=== PATIENT | male | born 1955 | race African-American/Black ===

== ENCOUNTER 2018-01-09 19:41 | Inpatient (IN) | payer OTHER ==
[~2018-01-09] VITALS: Ht 177.8 cm; Wt 98.1 kg
--- OUTSIDE RECORDS SUMMARY | 2018-01-09 19:45 | XMS REPORT | Clinical Summary ---
Author Author [facility] Organization [facility] Address Unknown Phone Unavailable Care Team Providers Care Mailroom Courier Name Role Phone Jaya Nelson MD PCP Allergies Active Allergy Reactions Severity Noted Date Comments Codeine 05/27/2017 Current Medications Prescription Sig. Disp. Refills Start End Date Status Date amoxicillin (AMOXIL) 875 TK 1 T PO BID 0 04/22/ Active MG tablet 17 ciprofloxacin (CIPRO) 500 TK 1 T PO BID 0 05/23/20 Active MG tablet 17 ergocalciferol (VITAMIN TK 1 C PO 1 TIME A WK 2 05/05/20 Active D2) 50,000 unit capsule 17 losartan (COZAAR) 50 MG TK 1 T PO QD 1 05/05/20 Active tablet 17 simvastatin (ZOCOR) 20 MG TK 1 T PO QPM 0 05/14/20 Active tablet 17 Active Problems Problem Noted Date Acute prostatitis 05/27/2017 Encounters Date Type Specialty Care Team Description 05/27/2017 Office Visit Urology Rolf Trujillo MD Acute prostatitis (Primary Dx) after 01/08/2017 Social History Tobacco Use Types Packs/Day Years Used Date Never Smoker Alcohol Use Drinks/Week oz/Week Comments No Sex Assigned at Date Recorded Not on file Last Filed Vital Signs Vital Sign Reading Time Taken Blood Pressure 141/80 05/27/2017 3:35 PM CDT Pulse 63 05/27/2017 3:35 PM CDT Temperature 36.6 C (97.8 F) 05/27/2017 3:35 PM CDT Respiratory Rate - - Oxygen Saturation - - Inhaled Oxygen - - Concentration Weight 100 kg (221 lb) 05/27/2017 3:35 PM CDT Height 180.3 cm (5' 11") 05/27/2017 3:35 PM CDT Body Mass Index 30.82 05/27/2017 3:35 PM CDT Plan of Treatment Health Maintenance Due Date Last Done Comments COLONOSCOPY 2004 ZOSTER VACCINE 2014 INFLUENZA VACCINE 06/29/2017 Results * Microscopic Examination (05/28/2017 7:43 AM) Component Value Ref Range WBC, UA 0-5 0 - 5 /hpf RBC, UA 0-2 0 - 2 /hpf Epithelial cells (non 0-10 0 - 10 /hpf renal) Mucus, UA Present Not Estab. Bacteria, UA None seen None seen/Few Specimen Performing Laboratory [facility] Narrative Performed at:[address] [place], [place] [id number] Research Engineer: Joao Emerson MD, Phone:[phone] * Urinalysis, automated with microscopy (05/28/2017 7:43 AM) Component Value Ref Range Specific gravity, urine 1.028 1.005 - 1.030 pH, urine 6.5 5.0 - 7.5 Color, UA Yellow Yellow Appearance Clear Clear WBC esterase, urine Negative Negative Protein, UA 1+ (A) Negative/Trace Glucose, urine Negative Negative Ketones, UA Negative Negative Occult blood, urine Negative Negative Bilirubin, UA Negative Negative Urobilinogen, UA 0.2 0.2 - 1.0 mg/dL Nitrite, UA Negative Negative Microscopic examination See below:Comment: Microscopic was indicated and was performed. Specimen Performing Laboratory [facility] Narrative Performed at:[address] [place], [place] [id number] Research Engineer: Joao Emerson MD, Phone:[phone] * Urine culture (05/28/2017 7:43 AM) Component Value Ref Range Urine culture No growth Specimen Performing Laboratory [facility] Narrative Performed at:[address] [place], [place] [id number] Research Engineer: Joao Emerson MD, Phone:[phone] * Prostate specific antigen (05/28/2017 7:43 AM) Component Value Ref Range PSA 2.0 0.0 - 4.0 ng/mL Comment: [place] ECLIA methodology. According to the [employer], Serum PSA should decrease and remain at undetectable levels after radical prostatectomy. The AUA defines biochemical recurrence as an initial PSA value 0.2 ng/mL or greater followed by a subsequent confirmatory PSA value 0.2 ng/mL or greater. Values obtained with different assay methods or kits cannot be used interchangeably. Results cannot be interpreted as absolute evidence of the presence or absence of malignant disease. Specimen Performing Laboratory Blood [facility] Narrative Performed at: - [facility] [id number] Research Engineer: Joao Emerson MD, Phone:[phone] after 01/08/2017 Insurance Payer Benefit Subscriber ID Type Phone Address Plan / Group [facility] xxxxxxxxx HMO/PPO THCARE CHOICE/CHO ICE +
[2018-01-09 20:20] VITALS: BP 157/98
[2018-01-09] MEDS ORDERED: ONDANSETRON HCL INJ 2 MG/ML VIAL IV PRN (20:30)
[2018-01-09] MEDS: SODIUM CHLORIDE 0.9% 1000ML 1,000 ML IV SCH (20:30)
[2018-01-09] MEDS ORDERED: ACETAMINOPHEN 325 MG TAB PO PRN (22:45)
[2018-01-09] MEDS ORDERED: LOSARTAN POTASS25 MG PO (22:52)
[2018-01-09 22:54] VITALS: BP 157/98
[2018-01-10 00:15] VITALS: BP 162/90
[2018-01-10] MEDS: SODIUM CHLORIDE 0.9% 1000ML 1,000 ML IV SCH ×3 (03:10→16:20)
[2018-01-10 04:20] VITALS: BP 156/95
[2018-01-10 07:09] LABS: BASOPHILS % 0.9 % (0.0-1.0); EOSINOPHILS # (AUTO) 0.2 (0.0-0.4); EOSINOPHILS % 7.4 % (0.0-6.0); HEMATOCRIT 33.8 % (38.2-49.6); HEMOGLOBIN 12.1 g/dL (14.0-18.0); LYMPHOCYTES # (AUTO) 1.1 (1.0-3.2); LYMPHOCYTES % 51.6 % (18.0-39.1); MEAN CORPUSCULAR HEMOGLOBIN 27.8 pg (28-32); MEAN CORPUSCULAR HGB CONC 35.8 g/dL (31-35); MEAN CORPUSCULAR VOLUME 77.7 fL (81-99); MONOCYTES # (AUTO) 0.3 (0.2-0.8); MONOCYTES % 12.6 % (4.4-11.3); NEUTROPHILS # (AUTO) 0.6 (2.1-6.9); NEUTROPHILS % 27.5 % (38.7-80.0); PLATELET COUNT 188 x10e3/uL (140-360); RED BLOOD COUNT 4.35 x10e6/uL (4.3-5.7); RED CELL DISTRIBUTION WIDTH 12.2 % (11.7-14.4)
[2018-01-10 07:32] LABS: ANION GAP 10.6 mmol/L (8-16); BLOOD UREA NITROGEN 9 mg/dL (7-26); BUN/CREATININE RATIO 11 (6-25); CALCIUM 8.1 mg/dL (8.4-10.2); CARBON DIOXIDE 21 mmol/L (22-29); CHLORIDE 90 mmol/L (98-107); CHOL/HDL RATIO 2.5 (3.9-4.7); CHOLESTEROL 123 MD/DL (0-199); CREATINE KINASE 2490 IU/L (30-200); CREATININE, SERUM 0.83 mg/dL (0.72-1.25); EST GLOMERULAR FILTRATION RATE > 60 ML/MIN (60-); GLUCOSE 82 mg/dL (74-118); HDL CHOLESTEROL 49 MG/DL (40-60); LDL CHOLESTEROL 64 MG/DL (60-130); MAGNESIUM 1.4 MG/DL (1.3-2.1); PHOSPHORUS 3.4 MG/DL (2.3-4.7); POTASSIUM 4.6 mmol/L (3.5-5.1); TRIGLYCERIDES 50 MG/DL (0-149)
[2018-01-10 07:40] LABS: SODIUM 117 mmol/L (136-145)
[2018-01-10 07:45] LABS: THYROID STIMULATING HORMONE 1.719 uIU/mL (0.350-4.940)
[2018-01-10 08:01] VITALS: BP 155/80
--- NOTE | 2018-01-10 08:13 | History and Physical ---
PRIMARY CARE PHYSICIAN: Dr. Nelson CHIEF COMPLAINT: Muscle cramps of the legs. HISTORY OF PRESENT ILLNESS: This is a 62-year-old man with a history of hypertension, who was participating in increased physical activity with moving their furniture with a move from current home location, and who has been on simvastatin for the past 2 years at 20 mg daily. Had leg pain and muscle fatigue, and cramps in his lower extremities prompting a visit to the urgent care facility in [place]. There he was found to have acute rhabdomyolysis, and now transitioned here for care. Patient denies any chest pain or shortness of breath. PAST MEDICAL HISTORY: Hypertension. PAST SURGICAL HISTORY: Urologic. ALLERGIES: PER ELECTRONIC MEDICAL RECORDS. FAMILY HISTORY/SOCIAL HISTORY: Patient is . He has 4 children. No alcohol, illicits or cigarettes. He works at a desk job. MEDICATIONS: Per electronic medical records. REVIEW OF SYSTEMS: Denies any dizziness or chest pain. PHYSICAL EXAMINATION VITAL SIGNS: Reviewed. GENERAL: A tired-appearing man resting in bed. HEENT: Anicteric. Pupils respond to light. No oral lesions. CARDIOVASCULAR: Normal S1 and S2. LUNGS: Moderate breath sounds. ABDOMEN: Soft, nontender and nondistended. EXTREMITIES: No edema or calf tenderness. NEUROLOGICAL: Alert and oriented times 3. Moving all extremities. SKIN: Dry. PSYCHIATRIC: Normal affect. LABS: Reviewed. MEDICATIONS: Reviewed. ASSESSMENT AND PLAN: A 62-year-old man with: 1. Acute rhabdomyolysis: Creatinine kinase over 2000. Will continue intravenous fluid bolus in addition to fluids. Will check a TSH. Will avoid statin medication. 2. Hyponatremia: Will reassess his sodium level during the day. 3. Hypertension: Will start calcium channel adrianna. 4. Metabolic acidosis: Will give him bicarb and reassess his labs in the afternoon. 5. Obesity: Body mass index is 31. Will screen for diabetes and obtain a lipid panel. 6. Leukopenia: White blood cells are 2.15. Reassess. 7. Microcytic anemia which is mild: Will follow. 8. Prophylaxis: Will use sequential compression devices. 9. Disposition: Monitor closely. Reassess. Obtain labs. Recheck labs. Recheck sodium level. Job#: [id number] IN
[2018-01-10] MEDS: SENNOSIDES 8.6 MG TAB PO SCH (08:15)
[2018-01-10] MEDS: NIFEDIPINE CR 30 MG TAB PO SCH ×2 (08:15→21:48)
[2018-01-10] MEDS ORDERED: SODIUM CHLORIDE 0.9% 1000ML 1,000 ML IV ONE (08:30)
[2018-01-10] MEDS: SODIUM BICARBONATE 650 MG TAB PO SCH ×2 (09:00→17:15)
[2018-01-10 11:29] LABS: EOSINOPHILS % (MANUAL) 10 % (0-7); LYMPHOCYTES % (MANUAL) 42 % (19-48); MONOCYTES % (MANUAL) 9 % (3.4-9.0); NEUTROPHILS % (MANUAL) 35 % (40-74)
[2018-01-10 11:30] LABS: PLATELET ESTIMATE ADEQUATE; PLATELET MORPHOLOGY COMMENT NORMAL; RBC MORPHOLOGY COMMENT NORMAL
[2018-01-10 12:11] VITALS: BP 158/83
[2018-01-10 12:29] LABS: ANION GAP 10.2 mmol/L (8-16); BLOOD UREA NITROGEN 9 mg/dL (7-26); BUN/CREATININE RATIO 11 (6-25); CALCIUM 8.2 mg/dL (8.4-10.2); CARBON DIOXIDE 24 mmol/L (22-29); CHLORIDE 91 mmol/L (98-107); CREATININE, SERUM 0.85 mg/dL (0.72-1.25); EST GLOMERULAR FILTRATION RATE > 60 ML/MIN (60-); GLUCOSE 87 mg/dL (74-118); POTASSIUM 4.2 mmol/L (3.5-5.1); SODIUM 121 mmol/L (136-145)
[2018-01-10 16:00] VITALS: BP 138/83
[2018-01-10 20:00] VITALS: BP 134/86
[2018-01-11] VITALS: BP 157/87
[2018-01-11 04:00] VITALS: BP 145/78
[2018-01-11 08:03] VITALS: BP 124/71
[2018-01-11] MEDS: NIFEDIPINE CR 30 MG TAB PO SCH ×2 (09:15→21:25)
[2018-01-11] MEDS: SENNOSIDES 8.6 MG TAB PO SCH (09:15)
[2018-01-11] MEDS: SODIUM CHLORIDE 0.9% 1000ML 1,000 ML IV SCH ×3 (09:15→21:54)
[2018-01-11] MEDS: SODIUM BICARBONATE 650 MG TAB PO SCH ×2 (09:15→17:00)
[2018-01-11 11:51] VITALS: BP 148/78
[2018-01-11 16:00] VITALS: BP 142/81
[2018-01-11 20:00] VITALS: BP 153/86
[2018-01-12] VITALS (7 sets, daily range): BP systolic 150–176; BP diastolic 83–98
[2018-01-12] MEDS: SODIUM CHLORIDE 0.9% 1000ML 1,000 ML IV SCH ×2 (05:11)
[2018-01-12] MEDS: SENNOSIDES 8.6 MG TAB PO SCH (09:08)
[2018-01-12] MEDS: NIFEDIPINE CR 30 MG TAB PO SCH ×2 (09:08→20:40)
[2018-01-12] MEDS: SODIUM BICARBONATE 650 MG TAB PO SCH (09:08)
[2018-01-12] MEDS ORDERED: SODIUM CHLORIDE 0.9% 1000ML 1,000 ML IV SCH (10:00)
[2018-01-12 10:01] LABS: BASOPHILS % 0.8 % (0.0-1.0); EOSINOPHILS # (AUTO) 0.2 (0.0-0.4); EOSINOPHILS % 8.7 % (0.0-6.0); HEMATOCRIT 34.9 % (38.2-49.6); HEMOGLOBIN 12.4 g/dL (14.0-18.0); LYMPHOCYTES # (AUTO) 1.3 (1.0-3.2); LYMPHOCYTES % 52.4 % (18.0-39.1); MEAN CORPUSCULAR HEMOGLOBIN 27.8 pg (28-32); MEAN CORPUSCULAR HGB CONC 35.5 g/dL (31-35); MEAN CORPUSCULAR VOLUME 78.3 fL (81-99); MONOCYTES # (AUTO) 0.3 (0.2-0.8); MONOCYTES % 12.2 % (4.4-11.3); NEUTROPHILS # (AUTO) 0.7 (2.1-6.9); NEUTROPHILS % 25.5 % (38.7-80.0); PLATELET COUNT 208 x10e3/uL (140-360); RED BLOOD COUNT 4.46 x10e6/uL (4.3-5.7); RED CELL DISTRIBUTION WIDTH 12.4 % (11.7-14.4)
[2018-01-12 10:09] LABS: BLOOD UREA NITROGEN 8 mg/dL (7-26); BUN/CREATININE RATIO 11 (6-25); CALCIUM 8.1 mg/dL (8.4-10.2); CARBON DIOXIDE 18 mmol/L (22-29); CHLORIDE 90 mmol/L (98-107); CREATININE, SERUM 0.75 mg/dL (0.72-1.25); EST GLOMERULAR FILTRATION RATE > 60 ML/MIN (60-); GLUCOSE 79 mg/dL (74-118)
--- NOTE | 2018-01-12 10:17 | Progress Note ---
DATE: January 11, 2018 TIME: 7:40 a.m. OVERNIGHT: No events. REVIEW OF SYSTEMS: Denies any dizziness. VITAL SIGNS: Reviewed. PHYSICAL EXAMINATION GENERAL: A tired-appearing man resting in bed. HEENT: Anicteric. CARDIOVASCULAR: Normal S1 and S2. No murmur. ABDOMEN: Soft, nontender. EXTREMITIES: No edema. SKIN: Dry. PSYCHIATRIC: Normal affect. LABS: Reviewed. MEDICATIONS: Reviewed. ASSESSMENT AND PLAN: A 62-year-old man. 1. Acute rhabdomyolysis. 2. Hyponatremia. 3. Hypertension. 4. Metabolic acidosis. 5. Obesity. 6. Leukopenia. 7. Microcytic anemia. PLAN 1. Continue IV fluids. 2. Follow up CPK. 3. Follow I's and O's. 4. Blood pressure control. 5. Obtain labs. 6. Monitor. Job#: [id number]
[2018-01-12 10:19] LABS: SODIUM 117 mmol/L (136-145)
[2018-01-12 11:25] LABS: EOSINOPHILS % (MANUAL) 4 % (0-7); LYMPHOCYTES % (MANUAL) 50 % (19-48); MONOCYTES % (MANUAL) 16 % (3.4-9.0); NEUTROPHILS % (MANUAL) 30 % (40-74)
[2018-01-12 11:26] LABS: ANISOCYTOSIS SLIG; ELLIPTOCYTE, RBC SLIGHT; HYPOCHROMASIA SLIG; PLATELET ESTIMATE ADEQUATE; PLATELET MORPHOLOGY COMMENT FEW LARGE; POIKILOCYTOSIS SLIGHT; RBC MORPHOLOGY COMMENT NORMAL
[2018-01-12 12:10] LABS: FREE THYROXINE INDEX 1.8048 (1.4-3.8); THYROID STIMULATING HORMONE 2.019 uIU/mL (0.350-4.940)
--- NOTE | 2018-01-12 14:39 | Consultation ---
DATE OF CONSULTATION: January 12, 2018 REASON FOR CONSULTATION: Hyponatremia. HPI: Mr. Leonardo is a pleasant 62-year-old man with a history of hypertension, who was admitted to [facility] on January 09, 2018, which is 2 days ago with complaints of muscle cramps in his lower extremities. He had been moving some furniture when the left pain started. He was found to be in acute rhabdo and was admitted for further treatment. Upon presentation, his creatine kinase level was 2490 and has since then trended down to 1482 today. Also, on presentation, his sodium level was 117 mEq per liter. He was aggressively started on IV normal saline at 200 mL per hour. Two days ago, his sodium trended up to 121 and then this morning again has trended down to 117 mEq per liter. According to the patient, he does not have a prior history of hyponatremia and has never been seen by a wire frame lampshade maker for this either. REVIEW OF SYSTEMS: Denies fevers, chills, nausea, vomiting, diarrhea, chest pain, palpitations, abdominal pain, pain or burning with urination, numbness or tingling in upper or lower extremities, no changes in mood, no changes in appetite, and no changes in thirst. PAST MEDICAL HISTORY: Hypertension. PAST SURGICAL HISTORY: None. ALLERGIES: SULFA AND CODEINE. FAMILY HISTORY: No renal disease. SOCIAL HISTORY: No alcohol, tobacco, or illicit drug use. PHYSICAL EXAMINATION GENERAL: He is lying comfortably in bed, in no acute distress. VITAL SIGNS: Temperature 97.4, heart rate 62, respiratory rate 18, blood pressure 102/83, and O2 sat is 100%. HEENT: NC, AT, EOMI. NECK: Supple. JVP not appreciated. LUNGS: Clear to auscultation bilaterally. No wheezing or rales. HEART: Regular rate and rhythm, S1 and S2 normal. ABDOMEN: Soft, nontender, and distended. Positive bowel sounds. EXTREMITIES: No edema. Intact pulses. SKIN: No rashes or lesions. MUSCULOSKELETAL: Normal to inspection. NEURO: Cranial nerves II through XII are grossly intact. No focal deficits. LABS: Reviewed on electronic medical record significant for a sodium of 117, chloride of 90, and bicarb was 18. CK level 1482. IMAGING: Reviewed on electronic medical record. ASSESSMENT: Mr. Leonardo is a 62-year-old man admitted with rhabdomyolysis and found to be in hyponatremia. PLAN: Hyponatremia at this point. We will just treat hyponatremia as chronic. So, the goal would be to collect to 6 to 8 mEq in 24 hours. Goals for correction until tomorrow a.m. is 123 mEq per liter. On exam, looks euvolemic and I suspect this is SIADH; however, he has no overt reasons to be in SIADH and has not had a history of SIADH previously as well, nor has a history of pathology in his brain or lungs that would explain SIADH. We will check her urine sodium, urine os, urine potassium, uric acid, serum osmolality, TSH, and cortisol level. Since sodium level has trended down despite adequate fluid resuscitation including 3 liters of normal saline from admission along with another 100 mL per hour started as well. We will stop the IV fluids. We will check urine studies. In the interim, we will place him on fluid restriction, and if sodium trends down any further or if he starts to have symptoms, will require 3% normal saline. Thank you, Dr. Magaña, for allowing me to participate in the care of Mr. Leonardo. I will continue to follow closely. Job#: [id number] VAS
[2018-01-12] MEDS ORDERED: SODIUM CHLORIDE 1 GM TAB PO SCH (15:00)
--- NOTE | 2018-01-12 15:24 | Diagnostic Imaging Report ---
PROCEDURE: Frontal and lateral views of the chest. COMPARISON: None. INDICATIONS: HYPONATREMIA FINDINGS: Lines/tubes: None. Lungs: The lungs are well inflated and clear. There is no evidence of pneumonia or pulmonary edema. Pleura: There is no pleural effusion or pneumothorax. Heart and mediastinum: Tortuous aorta. Otherwise, the heart and the mediastinum are normal. Bones: No acute bony abnormality. IMPRESSION: No acute cardiopulmonary disease. Dictated by: Lyle Yap M.D. on 01/12/2018 at 15:23 Electronically approved by: Lyle Yap M.D. on 01/12/2018 at 15:23
[2018-01-12] MEDS ORDERED: TOLVAPTAN 15 MG TAB PO ONE (17:15)
[2018-01-12] MEDS ORDERED: TOLVAPTAN 30 MG TAB PO NR (17:45)
[2018-01-13] VITALS (7 sets, daily range): BP systolic 93–140; BP diastolic 65–85
[2018-01-13 07:10] LABS: BASOPHILS % 1.1 % (0.0-1.0); EOSINOPHILS # (AUTO) 0.2 (0.0-0.4); EOSINOPHILS % 7.9 % (0.0-6.0); HEMATOCRIT 35.7 % (38.2-49.6); HEMOGLOBIN 12.7 g/dL (14.0-18.0); LYMPHOCYTES # (AUTO) 1.2 (1.0-3.2); LYMPHOCYTES % 42.9 % (18.0-39.1); MEAN CORPUSCULAR HEMOGLOBIN 27.9 pg (28-32); MEAN CORPUSCULAR HGB CONC 35.6 g/dL (31-35); MEAN CORPUSCULAR VOLUME 78.3 fL (81-99); MONOCYTES # (AUTO) 0.4 (0.2-0.8); MONOCYTES % 13.9 % (4.4-11.3); NEUTROPHILS % 33.8 % (38.7-80.0); PLATELET COUNT 209 x10e3/uL (140-360); RED BLOOD COUNT 4.56 x10e6/uL (4.3-5.7); RED CELL DISTRIBUTION WIDTH 12.7 % (11.7-14.4)
[2018-01-13 07:34] LABS: ANION GAP 12.6 mmol/L (8-16); BLOOD UREA NITROGEN 15 mg/dL (7-26); BUN/CREATININE RATIO 12 (6-25); CALCIUM 8.7 mg/dL (8.4-10.2); CARBON DIOXIDE 21 mmol/L (22-29); CHLORIDE 91 mmol/L (98-107); CREATINE KINASE 1274 IU/L (30-200); CREATININE, SERUM 1.27 mg/dL (0.72-1.25); EST GLOMERULAR FILTRATION RATE > 60 ML/MIN (60-); GLUCOSE 81 mg/dL (74-118); POTASSIUM 4.6 mmol/L (3.5-5.1); SODIUM 120 mmol/L (136-145)
[2018-01-13] MEDS: NIFEDIPINE CR 30 MG TAB PO SCH ×2 (09:00→20:38)
[2018-01-13] MEDS: SENNOSIDES 8.6 MG TAB PO SCH (09:00)
--- NOTE | 2018-01-13 09:35 | Progress Note ---
DATE: January 13, 2018 TIME: 8:55 a.m. OVERNIGHT: Patient had worsening sodium. Fluids were stopped and nephrology consulted. Started on tolvaptan and salt tablets. REVIEW OF SYSTEMS: Denies any chest pain or shortness of breath. VITAL SIGNS: Reviewed. PHYSICAL EXAMINATION GENERAL: A tired-appearing man resting in bed. HEENT: Anicteric. CARDIOVASCULAR: Normal S1 and S2. LUNGS: Moderate breath sounds. ABDOMEN: Soft, nontender, nondistended. EXTREMITIES: No edema. SKIN: Dry. PSYCHIATRIC: Normal affect. LABS: Reviewed. MEDICATIONS: Reviewed. ASSESSMENT AND PLAN: A 62-year-old man. 1. Acute rhabdomyolysis. 2. Syndrome of inappropriate antidiuretic hormone secretion. 3. Hypertension. 4. Metabolic acidosis. 5. Obesity. 6. Leukopenia. 7. Microcytic anemia. 8. Acute kidney injury. PLAN 1. Salt tablets. 2. Tolvaptan. 3. Follow sodium level. Sodium level today is 120, which is improving. 4. Monitor renal function. 5. CPK is down to 1274. 6. Continue close monitoring of sodium. Salt tablets and tolvaptan were given yesterday and are off. Will continue to follow closely with nephrology. Job#: [id number]
[2018-01-13 12:19] LABS: ANISOCYTOSIS SLIGHT; EOSINOPHILS % (MANUAL) 3 % (0-7); LYMPHOCYTES % (MANUAL) 45 % (19-48); MONOCYTES % (MANUAL) 13 % (3.4-9.0); NEUTROPHILS % (MANUAL) 38 % (40-74); POIKILOCYTOSIS SLIGHT
[2018-01-13 12:20] LABS: HOWELL-JOLLY BODIES FEW; HYPOCHROMASIA SLIGHT; PLATELET ESTIMATE ADEQUATE; PLATELET MORPHOLOGY COMMENT NORMAL; RBC MORPHOLOGY COMMENT NORMAL
--- NOTE | 2018-01-13 13:32 | Progress Note ---
DATE: January 13, 2018 REASON FOR CONSULTATION: Hyponatremia. SUBJECTIVE: Patient states he is feeling much better. Denies changes in mood, imbalance, or changes in thirst. OBJECTIVE GENERAL: Sitting comfortably in chair. VITAL SIGNS: Temperature 96.6, heart rate 70, respiratory rate 18, blood pressure 110/75, and O2 sat is 100% on room air. LUNGS: Clear to auscultation bilaterally. No wheezing or rales. HEART: Regular rate and rhythm. S1 and S2 normal. ABDOMEN: Soft, nontender, and nondistended. EXTREMITIES: No edema. Intact pulses. SKIN: No rashes or lesions. LABS: Reviewed on electronic medical record significant for a hemoglobin of 12.7. Reviewed on electronic medical record significant for a sodium of 120, chloride of 91, bicarb of 21, creatinine of 1.2, and creatine kinase of 1274 from 1489. IMAGING: Reviewed on electronic medical record. No acute cardiopulmonary disease. ASSESSMENT 1. Nonoliguric acute kidney injury, question whether he has developed acute kidney injury in the setting of tolvaptan therapy. The only thing different from the medications he was getting to today was a tolvaptan. Did increase his urination. However prior to giving the tolvaptan, urine studies were performed and his urine sodium was 100. We would suspect that if he was intravascularly depleted, urine sodium would be a lot lower. Primary reason for giving tolvaptan was that I would not have to put him on a fluid restriction in the setting of elevated creatine kinase level. Tolvaptan has not significantly changed his sodium level as I would have expected either. We will repeat a urinalysis as well as a urine sodium and urine osmolality this morning. 2. Hyponatremia as above. We will continue sodium checks and requested results of urine studies to be sent to me and we will determine whether to do more tolvaptan or switch to normal saline. We will continue oral sodium bicarbonate. 3. Metabolic acidosis: We will continue oral sodium bicarbonate. 4. Hypertension: Continue nifedipine. Job#: [id number] PAT
[2018-01-13 14:43] LABS: BILIRUBIN,URINE NEGATIVE (NEGATIVE); CLARITY,URINE CLEAR (CLEAR); COLOR,URINE YELLOW (YELLOW); KETONES,URINE NEGATIVE (NEGATIVE); LEUKOCYTE ESTERASE ,URINE NEGATIVE (NEGATIVE); NITRITE,URINE NEGATIVE (NEGATIVE); PROTEIN,URINE DIPSTICK NEGATIVE (NEGATIVE); URINE UROBILINOGEN 0.2 mg/dL (0.2 - 1)
--- NOTE | 2018-01-13 15:21 | Diagnostic Imaging Report ---
Examination: CT head without contrast Clinical Indication: Fatigue. Technique: Transaxial noncontrast images from the skull base through the vertex were obtained. Sagittal and coronal reformatted images were done. Comparison: None. Findings: Scalp: No abnormalities. Bones: Intact. No fractures. No blastic or lytic lesions. Brain sulci: Appropriate for patient's age. Ventricles: Normal in size and configuration. No hydrocephalus. . Extra-axial space: No abnormalities. Parenchyma: There are patchy areas of low-attenuation within subcortical and periventricular white matter, nonspecific, but could represent microvascular ischemic disease. Chronic lacunar infarcts are demonstrated in the bilateral centrum semiovale. No masses, hemorrhage, or acute or chronic cortical based vascular insults. Suprasellar region: There is an intrasellar and suprasellar hyperdense lesion measuring 2.9 x 2.1 x 2.5 cm (superoinferior x anteroposterior x transverse dimensions). There is likely compression of the optic chiasm. Craniocervical junction: The foramen magnum is patent. No Chiari one malformation. Impression: 1. No acute intracranial abnormality. 2. Findings described likely represent a pituitary adenoma which likely compresses the optic chiasm. 3. Mild chronic microvascular ischemic change. 4. Chronic lacunar infarcts in the bilateral centrum semiovale. Signed by: Dr. Lisa Curry M.D. on 01/13/2018 3:18 PM
[2018-01-13] MEDS ORDERED: SODIUM CHLORIDE 0.9% 1000ML 1,000 ML IV ONE (16:30)
[2018-01-13] MEDS: SODIUM BICARBONATE 650 MG TAB PO SCH (20:37)
[2018-01-13 21:08] LABS: ANION GAP 12.4 mmol/L (8-16); BLOOD UREA NITROGEN 18 mg/dL (7-26); BUN/CREATININE RATIO 17 (6-25); CALCIUM 8.7 mg/dL (8.4-10.2); CARBON DIOXIDE 18 mmol/L (22-29); CHLORIDE 97 mmol/L (98-107); CREATININE, SERUM 1.07 mg/dL (0.72-1.25); EST GLOMERULAR FILTRATION RATE > 60 ML/MIN (60-); GLUCOSE 92 mg/dL (74-118); POTASSIUM 4.4 mmol/L (3.5-5.1); SODIUM 123 mmol/L (136-145)
[2018-01-13] MEDS ORDERED: SODIUM BICARBONATE 8.4% INJ 50 ML SYR IV STA ×2 (22:17)
[2018-01-14] VITALS: BP 140/78
[2018-01-14] MEDS: SODIUM BICARBONATE 8.4% SYRING 75 ML in SODIUM CHLORIDE 0.45% 1,000 ML IV SCH ×2 (00:17→13:47)
[2018-01-14 04:58] VITALS: BP 113/66
[2018-01-14 05:41] LABS: ANION GAP 12.8 mmol/L (8-16); BLOOD UREA NITROGEN 26 mg/dL (7-26); BUN/CREATININE RATIO 20 (6-25); CARBON DIOXIDE 26 mmol/L (22-29); CHLORIDE 99 mmol/L (98-107); CREATININE, SERUM 1.33 mg/dL (0.72-1.25); EST GLOMERULAR FILTRATION RATE > 60 ML/MIN (60-); GLUCOSE 89 mg/dL (74-118); POTASSIUM 4.8 mmol/L (3.5-5.1); SODIUM 133 mmol/L (136-145)
[2018-01-14 08:00] VITALS: BP 118/75
--- NOTE | 2018-01-14 08:58 | Progress Note ---
DATE: January 14, 2018 TIME: 8:24 a.m. OVERNIGHT: CT scan of the brain showed a pituitary adenoma. REVIEW OF SYSTEMS: Denies any dizziness. PHYSICAL EXAMINATION VITAL SIGNS: Reviewed. GENERAL: A tired-appearing man resting in bed. HEENT: Anicteric. CARDIOVASCULAR: Normal S1 and S2. LUNGS: Moderate breath sounds. ABDOMEN: Soft. EXTREMITIES: No edema. SKIN: Dry. PSYCHIATRIC: Normal affect. NEUROLOGICAL: Alert and oriented times 3. Moving all extremities. LABS: Reviewed. MEDICATIONS: Reviewed. ASSESSMENT: A 62-year-old man with: 1. Acute rhabdomyolysis. 2. Pituitary adenoma. 3. Syndrome of inappropriate antidiuretic hormone. 4. Hypertension. 5. Metabolic acidosis. 6. Obesity. 7. Leukopenia. 8. Microcytic anemia. 9. Acute kidney injury. PLAN 1. He received salt tablets and tolvaptan. 2. Follow up sodium level this morning. 3. Follow up CPK level this morning. 4. He has pituitary adenoma. Will consult Dr. White of endocrinology. 5. Leukopenia has persisted. His sodium level today is 133, which is much improved. 6. Will check his creatinine kinase level this morning. Job#: [id number] ANTONIA
[2018-01-14] MEDS: SENNOSIDES 8.6 MG TAB PO SCH (09:02)
[2018-01-14] MEDS: NIFEDIPINE CR 30 MG TAB PO SCH ×2 (09:02→22:06)
[2018-01-14] MEDS: SODIUM BICARBONATE 650 MG TAB PO SCH ×2 (09:02→16:27)
[2018-01-14 12:00] VITALS: BP 135/79
[2018-01-14] MEDS: DEXTROSE 5% 1,000 ML IV SCH (14:38)
--- NOTE | 2018-01-14 14:55 | Progress Note ---
DATE: January 14, 2018 RENAL PROGRESS NOTE The patient is followed for hyponatremia. The patient's sodium level had been staying around 120 to 121, even after tolvaptan. The patient's urine sodium was less than 20, which is more consistent with volume depletion. The patient also had elevated serum creatinine at 1.27. CPK did also go up to 1274. The patient was given a fluid bolus. We did bring up the sodium to about 123 from 121. After that, maintenance fluids were started. The patient's sodium went up to 133 this morning. There was not a lab done in between. The creatinine is also elevated at 1.33. Despite ordering every 4-hour basic metabolic panel levels, there was no lab done in between the 2034 and 454 morning labs this morning. Later today this morning, the sodium is stable at 133. The patient is asymptomatic. No nausea. No vomiting. No shortness of breath. OBJECTIVE VITAL SIGNS: Have been noted. The blood pressure is 135/79, 70 pulse, 20 respirations. LUNGS: Clear to auscultation bilaterally. CARDIOVASCULAR: S1 and S2, no rub. ABDOMEN: Soft, nontender. EXTREMITIES: No edema. LABS: Reviewed. The last sodium was 133. Yesterday evening, the sodium was 123. Creatinine is 1.33. CPK level is 901. Bicarb is 26 now. IMPRESSION AND PLAN 1. Hyponatremia. At baseline, may have SIADH. However, likely developed volume depletion as evident by the worsening creatinine as well as low sodium of less than 20 on the urine sodium level. Repeat urine sodium is still pending. Suspect the patient will continue to respond to IV fluids. However, since the patient's sodium level did go up by 10 between 8 p.m. yesterday and this morning at 5 a.m., I would recommend to retard the correction of the sodium at this point. I will change the fluids to D5 water and continue at 75 mL per hour. Last sodium was stable at 133. Will continue to monitor every 4 hour sodium levels and make further recommendations. 2. Hypertension, appears stable. 3. Acute kidney injury. Creatinine is slightly elevated this morning at 1.33. Will continue to monitor closely and continue IV fluid hydration, changing the fluids as outlined above. 4. Metabolic acidosis has been corrected with isotonic fluids with IV bicarbonate that were started. That has been stopped now. The patient is on D5 water now. The patient is also on oral sodium bicarbonate. The bicarbonate is now corrected to 26. Job#: [id number]
[2018-01-14] MEDS ORDERED: GADOBENATE DIMEGLUMINE 1 ML IV ONE (15:00)
[2018-01-14] MEDS ORDERED: SODIUM CHLORIDE 0.9% 250ML 250 ML ONE (15:38)
--- NOTE | 2018-01-14 15:49 | Consultation ---
DATE OF CONSULTATION: January 14, 2018 ENDOCRINE CONSULTATION This is a patient of Dr. Magaña. Thank you very much for referring this patient. This is a 62-year-old black gentleman who is referred to me for evaluation of hyponatremia and a pituitary adenoma which was found incidentally on the CT scan of the brain. Patient does not have history of any major medical problems in the past. He came to the hospital with history of a leg cramps. On further evaluation, sodium was found to be 117. His CKs were significantly elevated. A CT scan was done which showed evidence of pituitary adenoma, about 2.9 x 2.1 x 2.5 cm. Patient does not have history of any major endocrine problem in the past. PHYSICAL EXAMINATION GENERAL: Today, the patient is alert, awake, a little bit apprehensive. VITALS: Heart rate is around 78. Blood pressure 130/80 mmHg. HEENT: Essentially unremarkable. Thyroid is palpable. Clinically he is near euthyroid. CHEST: Bilateral vesicular breathing. He has mild bronchospasm. CARDIAC: First and 2nd heart sounds. There is no 3rd or 4th heart sound. Ejection systolic murmur grade 2/6. CLINICAL IMPRESSION 1. Hyponatremia. 2. Acute rhabdomyolysis. 3. Pituitary adenoma found on the CT scan of the brain. PLAN: The plan at this time is to do a hormonal profile including serum LH, FSH, prolactin and testosterone. Would also like to do an MRI of the pituitary with contrast. Thanks again for referring this patient. I will be following this patient with you. Job#: [id number]
[2018-01-14 16:00] VITALS: BP 124/81
--- NOTE | 2018-01-14 19:04 | Diagnostic Imaging Report ---
EXAMINATION: MRI of the Sella without and with contrast HISTORY: Pituitary adenoma, rather mild ICAs, hypertension COMPARISON: Head CT on 01/13/2018 TECHNIQUE: Thin section images of the sella consisting of coronal dynamic T1, sagittal and coronal T1 pre/post contrast, coronal T2. Whole brain DWI/ADC. Intravenous Contrast: 20 mL of MultiHance. FINDINGS: Pituitary gland: Approximately 2.8 cm superior to inferior x 2.3 cm transverse and 2.1 cm AP diameter heterogeneous signal intensity and enhancing mass within the sella and suprasellar cistern, the mass is compressing and displacing superiorly the optic chiasm. Unremarkable neuro and adenohypophysis. Sella Turcica: Widened/enlarged due to the above-mentioned mass Pituitary stalk: Displaced superior and dorsally Optic chiasm: Compressed and displaced superiorly. Cavernous sinuses: Minimal tumor extension mainly within the right cavernous sinus without encasement of the carotid arteries. Internal carotid arteries: Normal flow void appearance. Visualized brain parenchyma: Few scattered and mildly confluent periventricular white matter T2 hyperintense foci, most likely nonspecific chronic microvascular ischemic changes.. 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 Signed by: Dr. Belen Vizcarra M.D. on 01/14/2018 7:00 PM
[2018-01-14 20:00] VITALS: BP 151/76
[2018-01-15] VITALS: BP 136/73
[2018-01-15 00:20] LABS: ANION GAP 12.2 mmol/L (8-16); BLOOD UREA NITROGEN 21 mg/dL (7-26); BUN/CREATININE RATIO 20 (6-25); CALCIUM 9.3 mg/dL (8.4-10.2); CARBON DIOXIDE 27 mmol/L (22-29); CHLORIDE 98 mmol/L (98-107); CREATININE, SERUM 1.06 mg/dL (0.72-1.25); EST GLOMERULAR FILTRATION RATE > 60 ML/MIN (60-); GLUCOSE 85 mg/dL (74-118); POTASSIUM 4.2 mmol/L (3.5-5.1); SODIUM 133 mmol/L (136-145)
[2018-01-15 04:00] VITALS: BP 155/91
[2018-01-15] MEDS: DEXTROSE 5% 1,000 ML IV SCH (04:55)
[2018-01-15 05:20] VITALS: BP 120/81
[2018-01-15 08:00] VITALS: BP 174/84
[2018-01-15] MEDS: SODIUM BICARBONATE 650 MG TAB PO SCH ×2 (08:23→16:09)
[2018-01-15] MEDS: NIFEDIPINE CR 30 MG TAB PO SCH (08:23)
[2018-01-15] MEDS: SENNOSIDES 8.6 MG TAB PO SCH (08:23)
[2018-01-15 08:38] LABS: BLOOD UREA NITROGEN 15 mg/dL (7-26); BUN/CREATININE RATIO 16 (6-25); CALCIUM 8.8 mg/dL (8.4-10.2); CARBON DIOXIDE 26 mmol/L (22-29); CHLORIDE 99 mmol/L (98-107); CREATINE KINASE 757 IU/L (30-200); CREATININE, SERUM 0.94 mg/dL (0.72-1.25); EST GLOMERULAR FILTRATION RATE > 60 ML/MIN (60-); GLUCOSE 101 mg/dL (74-118); MAGNESIUM 1.9 MG/DL (1.3-2.1); PHOSPHORUS 3.3 MG/DL (2.3-4.7); SODIUM 133 mmol/L (136-145)
[2018-01-15 12:00] VITALS: BP 161/87
[2018-01-15] MEDS ORDERED: LABETALOL HCL 100 MG TAB PO SCH (13:15)
--- NOTE | 2018-01-15 14:32 | Progress Note ---
DATE: January 15, 2018 TIME: 12:50 p.m. OVERNIGHT: No events. Had MRI yesterday. REVIEW OF SYSTEMS: Denies any dizziness. PHYSICAL EXAMINATION VITAL SIGNS: Reviewed. GENERAL: A tired-appearing man, resting in bed. HEENT: Anicteric. Pupils respond to light. No oral lesions. CARDIOVASCULAR: Normal S1 and S2. LUNGS: Moderate breath sounds. ABDOMEN: Soft, nontender, nondistended. EXTREMITIES: No edema or calf tenderness. NEUROLOGIC: Alert and appropriate. Moves all extremities. SKIN: Dry. PSYCHIATRIC: Normal affect. LABS: Reviewed. MEDICATIONS: Reviewed. ASSESSMENT: A 62-year-old man with; 1. Acute rhabdomyolysis. 2. Pituitary adenoma. 3. Hyponatremia/worsening of syndrome of inappropriate antidiuretic hormone. 4. Hypertension. 5. Metabolic acidosis. 6. Obesity. 7. Leukopenia. 8. Microcytic anemia. 9. Acute kidney injury. PLAN 1. Followup MRI result. 2. Patient received tolvaptan and salt tablets. 3. Sodium is improved. 4. Followup CPK. 5. Sodium today is 133. 6. CPK continues to improve today at 757. 7. Followup testosterone level, prolactin, LH, and FSH. 8. MRI of the pituitary shows pituitary macroadenoma with suprasellar extension and compression of the optic chiasm. Job#: [id number] VAS
[2018-01-15] MEDS ORDERED: ALPRAZOLAM 0.25 MG TAB PO PRN (15:30)
[2018-01-15] MEDS ORDERED: ZOLPIDEM TARTRATE 5 MG TAB PO PRN (15:30)
[2018-01-15 16:00] VITALS: BP 175/89
--- NOTE | 2018-01-15 16:31 | Progress Note ---
DATE: January 15, 2018 RENAL PROGRESS NOTE SUBJECTIVE: Followed for hyponatremia. 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 However, did have some degree of volume depletion, responded well to IV fluids. Yesterday his sodium came up to 133. D5 water was initiated since the correction was a little bit faster than desired. Sodium remained 133. Patient is asymptomatic today. No nausea, no vomiting, no shortness of breath. Interestingly, patient had initial CT scan of his head done as part of workup and diagnosis of the hyponatremia and was found to have possible pituitary adenoma. 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 Neurosurgery is likely to be getting involved in the case as well. Endocrine is aware of this as well as primary MD. I did discuss the case with Dr. Magaña. No current symptoms as far as the patient is concerned. Sodium is stable, as I stated, at 133. OBJECTIVE VITAL SIGNS: Vital signs have been noted. The blood pressure is 161/87, pulse 72, afebrile. LUNGS: Clear to auscultation bilaterally. CARDIOVASCULAR: S1 and S2. No rub. ABDOMEN: Soft, nontender. EXTREMITIES: No edema. LABS: Sodium is 133, potassium 4, bicarb is 26, BUN is 15, creatinine 0.9, calcium is 8.8, phosphorus 3.3, and CPK is down to 757. IMPRESSION AND PLAN 1. Hyponatremia. 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 There have been case reports of this. For now would stop the IV fluid, keep the patient on fluid restriction 1 liter per day and monitor his sodium levels. For now would be okay to monitor on a daily basis. Patient is asymptomatic at this time. He likely will need to have Neurosurgery involved in the case since he does have a pituitary macroadenoma, and this likely will require surgical intervention. 2. Hypertension, stable. Continue to monitor. 3. Metabolic acidosis, on oral sodium bicarbonate. Continue for now. Thank you once again. Job#: [id number]
[2018-01-15] MEDS ORDERED: NIFEDIPINE CR 30 MG TAB PO SCH (21:00)
[2018-01-17 13:10] LABS: OSMOLALITY,SERUM OSMOMETER 273 mOsmol/kg (280-301)
== END 2018-01-15 18:49 | disposition other institution (70) | DRG 644 ==
LOC: MED/SURG3 19:41
PROVIDERS: ADMIT Internal Medicine; ATTEND Internal Medicine
DX: E22.2 Syndrome of inappropriate secretion of antidiuretic hormone (principal); M62.82 Rhabdomyolysis; N17.9 Acute kidney failure, unspecified; E87.2 Acidosis; E86.0 Dehydration; D35.2 Benign neoplasm of pituitary gland; I10 Essential (primary) hypertension; E66.9 Obesity, unspecified; Z68.31 Body mass index [BMI] 31.0-31.9, adult; D72.819 Decreased white blood cell count, unspecified; D50.9 Iron deficiency anemia, unspecified; Z88.5 Allergy status to narcotic agent; Z88.2 Allergy status to sulfonamides
CPT/HCPCS: 36415; 70450; 70553; 71046; 80048; 80061; 81001; 82533; 82550; 82948; 83036; 83615; 83735; 83930; 83935; 84100; 84133; 84146; 84295; 84300; 84402; 84436; 84439; 84443; 84479; 84550; 85025; 87086; 93005; 96361; J7030; J7050; J7070